=== PATIENT | female | born 1990 | race Caucasian/White ===

== ENCOUNTER 2020-01-27 12:20 | Inpatient (IN) | payer MEDICAID ==
[~2020-01-27] VITALS: Ht 162.6 cm; Wt 39.2 kg
--- NOTE | 2020-01-27 12:30 | NUR ---
Dr. Akins at bedside for MSE
--- NOTE | 2020-01-27 12:44 | NUR ---
Called [facility] supervisor looping for midline placement as ordered by , eta 1400.
[2020-01-27] MEDS ORDERED: IV NORMAL SALINE 1000 ML BAG IV ONE ×2 (12:45→16:15)
[2020-01-27] MEDS ORDERED: HYDROMORPHONE 2 MG/1 ML DISP.SYRIN ONE ×2 (14:55→16:11)
[2020-01-27] MEDS ORDERED: ONDANSETRON 4 MG/2 ML VIAL ONE ×2 (14:55→16:11)
[2020-01-27] MEDS ORDERED: HYDROMORPHONE 1 MG/1 ML DISP.SYRIN IM ONE (15:00)
[2020-01-27] MEDS ORDERED: ONDANSETRON 4 MG/2 ML VIAL IM ONE (15:00)
[2020-01-27 15:48] LABS: BASOPHILS % (AUTO) 0.1 % (0.0-2.0); EOSINOPHILS % (AUTO) 0.1 % (0.0-7.0); LYMPHOCYTES # (AUTO) 1.5 K/uL (20.0-40.0); LYMPHOCYTES % (AUTO) 5.2 % (20.5-51.5); MEAN CORPUSCULAR HEMOGLOBIN 21.7 uug (24.7-32.8); MEAN CORPUSCULAR HGB CONC 32 g/dL (32.3-35.6); MEAN CORPUSCULAR VOLUME 68.1 fL (75.5-95.3); MONOCYTES # (AUTO) 0.2 K/uL (2.0-10.0); MONOCYTES % (AUTO) 0.8 % (0.0-11.0); NEUTROPHILS # (AUTO) 26.7 K/uL (1.8-8.9); NEUTROPHILS % (AUTO) 93.8 % (38.5-71.5); PLATELET COUNT (AUTO) 366 K/uL (179-408); WHITE BLOOD COUNT (AUTO) 28.5 K/uL (3.8-11.8)
[2020-01-27 15:54] LABS: RED BLOOD CELL COUNT(AUTO) 2.45 MIL/uL (3.63-4.92)
[2020-01-27 15:56] LABS: HEMATOCRIT 16.7 % (31.2-41.9); HEMOGLOBIN 5.3 g/dL (10.9-14.3)
[2020-01-27] MEDS ORDERED: HYDROMORPHONE 1 MG/1 ML DISP.SYRIN IV ONE (16:00)
[2020-01-27] MEDS ORDERED: ONDANSETRON 4 MG/2 ML VIAL IV ONE (16:00)
[2020-01-27] MEDS ORDERED: VANCOMYCIN IV 1,000 MG in IV DEXTROSE 5% 250 ML IV ONE (16:00)
[2020-01-27 16:03] LABS: BILIRUBIN,DIRECT 0.9 mg/dL (0.0-0.2); BILIRUBIN,TOTAL 1.3 mg/dL (0.2-1.0); CREATININE 0.6 mg/dL (0.6-1.3); TOTAL PROTEIN, SERUM 6.4 g/dL (6.4-8.2)
[2020-01-27 16:10] LABS: POTASSIUM 2.8 mmol/L (3.5-5.1)
[2020-01-27] MEDS ORDERED: VANCOMYCIN IV 200 ML ONE (16:11)
[2020-01-27] MEDS ORDERED: POTASSIUM CHLORIDE 20 MEQ TAB.PRT.SR PO ONE (16:15)
[2020-01-27] MEDS ORDERED: POTASSIUM CHLORIDE 20 MEQ TAB.PRT.SR ONE (16:19)
[2020-01-27 17:27] LABS: *BILIRUBIN,URIN NEGATIVE (NEGATIVE); *CLARITY,URINE SLIGHTLY CLOUDY (CLEAR); *COLOR,URINE YELLOW (YELLOW); *KETONES,URINE NEGATIVE (NEGATIVE); *UROBILINOGEN,URINE 0.2 E.U./dl (NORMAL); LEUKOCYTE ESTERASE ,URINE TRACE (NEGATIVE); NITRITE, URINE POSITIVE (NEGATIVE); UGLUCOSE NEGATIVE (NEGATIVE)
--- NOTE | 2020-01-27 17:30 | NUR ---
Pt. admitted to Telemetry , under care of Dr. Moya Belongs List completed
[2020-01-27 17:32] LABS: *BLOOD, URINE TRACE LYSED (NEGATIVE)
[2020-01-27 17:39] LABS: *URINE HCG, QUAL NEGATIVE (NEGATIVE); BACTERIA,URINE MANY /HPF (NONE SEEN); SQUAMOUS EPITHELIAL CELL,UR FEW /HPF (NONE SEEN)
[2020-01-27 17:44] LABS: *AMPHETAMINE, URINE POSITIVE (NEGATIVE); *BARBITURATE, URINE NEGATIVE (NEGATIVE); *CANNABINOID, URINE NEGATIVE (NEGATIVE); *COCCAINE, URINE NEGATIVE (NEGATIVE); *OPIATE, URINE POSITIVE (NEGATIVE); *PHENCYCLIDINE SCREEN,URINE NEGATIVE (NEGATIVE)
--- NOTE | 2020-01-27 17:45 | NUR ---
15 MINUTE BLOOD TRANSFUSION VITALS FOLLOWS: BP: 103/51 P106 T98.4 RR20. Denies any pain or discomfor at this time. NAD noted.
[2020-01-27 17:52] LABS: IRON, SERUM 12 ug/dL (50-175)
--- NOTE | 2020-01-27 17:53 | NUR ---
Report given to Autumn PETTY
--- NOTE | 2020-01-27 17:53 | NUR ---
Blood transfusion to finish infusing in telemetry. Autumn PETTY aware
[2020-01-27 18:30] LABS: BAND % (MANUAL) 15 % (0-10); LYMPHOCYTES % (MANUAL) 2 % (20-40); MONOCYTES % (MANUAL) 1 % (2-10); NEUTROPHILS % (MANUAL) 82 % (42-75)
--- NOTE | 2020-01-27 18:30 | NUR ---
received pt. resting in bed alert oriented but goes through periods of dozing off. pt. appears in discomfort screaming c/o being cold. Provided pt. with warm blankets. Pt. has L UE midline intact patent running blood. Pt. on room air saturating 92%. Provided pt. with 2L NC for support. pt. does want body examined at this time for photos. Will endorse to PM nurse. Pt. has bilateral lower extremity edema. Elevated legs on 2 pillows. safety measures in place. call light within reach. will endorse to pm nurse
[2020-01-27] MEDS ORDERED: MAGNESIUM HYDROXIDE 30 ML LIQUID UDC PO PRN (18:45)
[2020-01-27] MEDS ORDERED: ACETAMINOPHEN 325 MG TABLET PO PRN (18:45)
[2020-01-27] MEDS ORDERED: ONDANSETRON 4 MG/2 ML VIAL IV PRN (18:45)
[2020-01-27] MEDS ORDERED: TEMAZEPAM 15 MG CAPSULE PO PRN (18:45)
--- NOTE | 2020-01-27 19:30 | NUR ---
Received patient resting in bed. AAOx3. In and out of dozing off but can easily be awakened. No signs or symptoms of acute distress at this time. Patient denies SOB and pain. Left upper arm midline intact. Blood transfusion remaining. Bed locked and low. Safety measures in place and will continue to monitor.
[2020-01-27 20:13] VITALS: BP 108/59
[2020-01-27] MEDS: POTASSIUM CHLORIDE 20 MEQ in IV D5/ 0.9% NACL 1,000 ML IV PRN (21:09)
[2020-01-27] MEDS: MEROPENEM 1 G in IV NORMAL SALINE 100 ML IV SCH (21:12)
[2020-01-27 21:29] VITALS: BP 111/74
[2020-01-28] VITALS (10 sets, daily range): BP systolic 100–129; BP diastolic 60–72
[2020-01-28] MEDS ORDERED: VANCOMYCIN IV 1,000 MG in IV DEXTROSE 5% 250 ML IV SCH ×2
[2020-01-28 01:38] LABS: HEMATOCRIT 19.4 % (31.2-41.9); HEMOGLOBIN 6.3 g/dL (10.9-14.3)
--- NOTE | 2020-01-28 02:55 | NUR ---
15 MINUTE BLOOD TRANSFUSION VITALS FOLLOWS: BP: 123/68 P 95 T 98.9 RR 16. Denies any pain or discomfort at this time.
[2020-01-28] MEDS ORDERED: VANCOMYCIN IV 750 MG in IV DEXTROSE 5% 250 ML IV SCH (04:00)
--- NOTE | 2020-01-28 04:39 | NUR ---
END Blood Transfusion. Ending vitals BP 107/62 T 98.3 HR 85 RR 16 O2 98%. No acute distress noted. Patient denies pain and SOB
[2020-01-28] MEDS: PANTOPRAZOLE SODIUM 40 MG TABLET.DR PO SCH (06:18)
[2020-01-28 07:09] LABS: BASOPHILS % (AUTO) 0.1 % (0.0-2.0); EOSINOPHILS % (AUTO) 0.1 % (0.0-7.0); HEMATOCRIT 24.4 % (31.2-41.9); HEMOGLOBIN 8.1 g/dL (10.9-14.3); LYMPHOCYTES # (AUTO) 1.4 K/uL (20.0-40.0); LYMPHOCYTES % (AUTO) 5.3 % (20.5-51.5); MEAN CORPUSCULAR HEMOGLOBIN 25.5 uug (24.7-32.8); MEAN CORPUSCULAR HGB CONC 33 g/dL (32.3-35.6); MEAN CORPUSCULAR VOLUME 77.4 fL (75.5-95.3); MONOCYTES # (AUTO) 0.4 K/uL (2.0-10.0); MONOCYTES % (AUTO) 1.5 % (0.0-11.0); NEUTROPHILS # (AUTO) 25.3 K/uL (1.8-8.9); PLATELET COUNT (AUTO) 267 K/uL (179-408); RED BLOOD CELL COUNT(AUTO) 3.16 MIL/uL (3.63-4.92); WHITE BLOOD COUNT (AUTO) 27.2 K/uL (3.8-11.8)
[2020-01-28 07:26] LABS: ALANINE AMINOTRANSFERASE 14 U/L (14-59); ALKALINE PHOSPHATASE 344 U/L (50-136); ASPARTATE AMINOTRANSFERASE 39 U/L (15-37); BILIRUBIN,TOTAL 1.7 mg/dL (0.2-1.0); CARBON DIOXIDE 32 mmol/L (21-32); CHLORIDE 92 mmol/L (98-107); CREATININE 0.6 mg/dL (0.6-1.3); GLUCOSE 149 mg/dL (74-106); MAGNESIUM 1.6 mg/dL (1.8-2.4); PHOSPHOROUS 2.5 mg/dL (2.5-4.9); TOTAL PROTEIN, SERUM 5.5 g/dL (6.4-8.2); TRIGLYCERIDES 43 MG/DL (30-150); UREA NITROGEN, BLOOD 11 mg/dL (7-18)
--- NOTE | 2020-01-28 07:46 | NUR ---
received pt. resting in bed alert oriented x3. pt. denies pain/ discomfort at this time. pt. denies sob/ difficulty breathing. pt. on room air saturating well. Midline in L UE intact patent running prescribed fluid. safety measures in place. call light within reach. will continue to monitor pt.
[2020-01-28 08:07] LABS: CHOLESTEROL < 50 mg/dL (<200)
[2020-01-28] MEDS: MEROPENEM 1 G in IV NORMAL SALINE 100 ML IV SCH ×3 (08:08→23:04)
[2020-01-28 08:16] LABS: HDL CHOLESTEROL < 10 mg/dL (40-60); POTASSIUM 2.8 mmol/L (3.5-5.1)
--- NOTE | 2020-01-28 08:46 | NUR ---
critical lab value for albumin. albumin level 1.1. contacted Dr. quigley. Awaiting orders.
[2020-01-28 09:35] LABS: THYROID STIMULATING HORMONE 1.816 mIU/mL (0.358-3.740)
[2020-01-28] MEDS: MAGNESIUM SULFATE/D5W 100 ML IV SCH ×2 (11:26→12:32)
[2020-01-28] MEDS: POTASSIUM CHLORIDE 10 MEQ TAB.PRT.SR PO SCH ×2 (11:27→16:22)
[2020-01-28] MEDS ORDERED: MEROPENEM 1 G in IV NORMAL SALINE 100 ML IV SCH (16:00)
[2020-01-28] MEDS: MORPHINE SULFATE 2 MG/1 ML DISP.SYRIN IV PRN ×3 (16:23→23:09)
[2020-01-28] MEDS: VANCOMYCIN IV 1,000 MG in IV DEXTROSE 5% 250 ML IV SCH (18:01)
--- NOTE | 2020-01-28 19:30 | NUR ---
Received patient lying in bed. No signs or symptoms of acute distress noted at this time. AAOx3. Patient denies SOB. C/o pain and withdrawal. Will administer medication per order. Midline patent and intact running ordered fluids. Bed locked and in low position. Safety measures in place and will continue to monitor.
[2020-01-29 00:41] VITALS: BP 92/58
[2020-01-29 01:45] LABS: BASOPHILS % (AUTO) 0.1 % (0.0-2.0); EOSINOPHILS % (AUTO) 0.1 % (0.0-7.0); HEMATOCRIT 23.3 % (31.2-41.9); HEMOGLOBIN 7.7 g/dL (10.9-14.3); LYMPHOCYTES # (AUTO) 1.8 K/uL (20.0-40.0); LYMPHOCYTES % (AUTO) 8.2 % (20.5-51.5); MEAN CORPUSCULAR HEMOGLOBIN 25.7 uug (24.7-32.8); MEAN CORPUSCULAR HGB CONC 33 g/dL (32.3-35.6); MEAN CORPUSCULAR VOLUME 77.5 fL (75.5-95.3); MONOCYTES # (AUTO) 0.5 K/uL (2.0-10.0); MONOCYTES % (AUTO) 2.1 % (0.0-11.0); NEUTROPHILS # (AUTO) 19.5 K/uL (1.8-8.9); NEUTROPHILS % (AUTO) 89.5 % (38.5-71.5); PLATELET COUNT (AUTO) 253 K/uL (179-408); RED BLOOD CELL COUNT(AUTO) 3.01 MIL/uL (3.63-4.92); WHITE BLOOD COUNT (AUTO) 21.8 K/uL (3.8-11.8)
[2020-01-29 04:00] VITALS: BP 106/69
[2020-01-29] MEDS: VANCOMYCIN IV 1,000 MG in IV DEXTROSE 5% 250 ML IV SCH ×2 (05:00→16:15)
[2020-01-29] MEDS: PANTOPRAZOLE SODIUM 40 MG TABLET.DR PO SCH (06:01)
[2020-01-29 06:46] LABS: ALANINE AMINOTRANSFERASE 15 U/L (14-59); ALKALINE PHOSPHATASE 294 U/L (50-136); ASPARTATE AMINOTRANSFERASE 25 U/L (15-37); BILIRUBIN,TOTAL 0.8 mg/dL (0.2-1.0); CARBON DIOXIDE 25 mmol/L (21-32); CHLORIDE 94 mmol/L (98-107); CREATININE 0.4 mg/dL (0.6-1.3); GLUCOSE 104 mg/dL (74-106); MAGNESIUM 1.5 mg/dL (1.8-2.4); PHOSPHOROUS 1.6 mg/dL (2.5-4.9); POTASSIUM 4.3 mmol/L (3.5-5.1); UREA NITROGEN, BLOOD 7 mg/dL (7-18)
--- NOTE | 2020-01-29 07:30 | NUR ---
Received pt. in bed sleeping, when aroused, AAOX4. vitals stable no c/of pain at this time. Will continue with care plan.
[2020-01-29] MEDS: MEROPENEM 1 G in IV NORMAL SALINE 100 ML IV SCH ×3 (07:37→21:31)
--- NOTE | 2020-01-29 07:51 | NUR ---
Notified by lab of critical value for Albumin 0.9. Spoke to Dr. Dickinson and they ordered to add 30 mL of protein supplement PO TID with food. Endorsed to oncoming nurse.
[2020-01-29] MEDS: PROTEIN SUPPLEMENT (PROSTAT) 30 ML LIQUID PO SCH ×3 (08:00→16:29)
[2020-01-29 08:15] VITALS: BP 104/64
--- NOTE | 2020-01-29 09:40 | NUR ---
A call from pt's dad and as per patient desire "I don't want any of information or clinical condition to be discussed with my parents my dad specially He's annoying"
[2020-01-29] MEDS ORDERED: NEUTRA PHOS PACKET PO ONE (09:45)
[2020-01-29] MEDS: MAGNESIUM SULFATE/D5W 100 ML IV SCH ×2 (10:27→11:48)
--- NOTE | 2020-01-29 10:30 | NUR ---
a call from pt's mother at this time she was provided with attending exchange number and she was informed of Ms. Kilpatrick desire to have her condition or care plan to be disclosed with any one except her boyfriend and as stated by pt. I'll inform him if needed" Attending also informed. And as suggested by community educatordirector career worker consulted to see patient.
[2020-01-29] MEDS: POTASSIUM CHLORIDE 20 MEQ in IV D5/ 0.9% NACL 1,000 ML IV PRN (10:34)
[2020-01-29] MEDS: MORPHINE SULFATE 2 MG/1 ML DISP.SYRIN IV PRN ×3 (10:35→21:32)
--- NOTE | 2020-01-29 11:25 | NUR ---
WOUND CARE CONSULT: PT REFUSED SKIN ASSESSMENT. REVIEWED PHOTOS AND NURSING DOCUMENTATION WHICH SHOW OPEN AREAS TO HANDS, SACRUM, HIPS, RT LOWER LEG, ALL PRESENT ON ADMISSION. RECOMMEND SURGICAL AND DPM CONSULTS. DR CARDOSO AND DR QUINONES NOTIFIED OF CONSULT REQUESTS. PT IS EXTREMELY THIN AND BONY. MD IN AGREEMENT WITH PLAN OF CARE.
[2020-01-29] MEDS ORDERED: Z GUARD REMEDY PASTE 57 GM TUBE TOP PRN (11:30)
--- NOTE | 2020-01-29 14:04 | NUR ---
Nutritional Services Cook Consultation: 1:00pm: This SW met with the patient for an SS consultation. Patient is a 29 year old female, who was brought in to the ED by her boyfriend due to swollen legs, and a loss of 30 pounds over the last month. Patient was asleep when this SW entered the patient's hospital room, however woke up when this SW called her name. Patient was receptive to meeting with this SW. Assessment completed by gathering information from the patient, who is alert, oriented x 4. Patient reports that she lives with her mother in [place] (address on the face sheet is accurate). Patient stated that she has been in contact with her mother since getting hospitalized, but expressed her wishes of not wanting her medical care and medical information to be discussed with her mother. MALINDA Alva and MALINDA Ospina informed. Patient reports being independent with her ADL's, however does not work. Patient states that she receives GR as income. Patient reports daily use of heroin, stating that she started using heroin at the age of 18. Patient reported being in treatment programs in the past, however stated that they were not helpful. SW explored patient's wishes to try treatment programs again, and patient stated that she does not want to go back to treatment and declined any resources that SW offered, stating "I have a lot of resources, but I'm not going to use them". Patient reported sometimes having feelings of anxiety, but she does not take any medications for anxiety. Patient denied SI and HI. No visual or auditory hallucinations. Patient was inconsistent with maintaining eye contact with this SW during interview, however speech, thought content, and thought process were clear and appropriate. Patient was cooperative with this SW and answered all questions appropriately. At times, patient's affect was observed to be grimacing, however patient said "she was fine". Patient's appearance was disheveled. Discharge plans were discussed, and patient stated that her plans were to return home after this hospitalization. Patient verified contact information: home number [phone]. Patient also stated that another contact is her boyfriend Ezequiel [phone], stating "I am with him 21/12". No further SS interventions needed at this time, however SW will continue to be available for the patient, if needed.
[2020-01-29 16:00] VITALS: BP 120/60
--- NOTE | 2020-01-29 17:00 | NUR ---
left pt. in bed resting medicated for pain prn. during shift pt. refused to get wound treatment both with me and [facility]. allowing only mepilex to sacral area to be changed but limiting the time of care. Pt. tolerating diet but consuming only minimal amount of food. Repositioning in bed independently. ML to LUE patent.
--- NOTE | 2020-01-29 19:30 | NUR ---
RECEIVED PT AWAKE,ALERT AND ORIENTEDX3. PT IN NO ACUTE RESPIRATORY DISTRESS. IV INTACT. PT REFUSING FOR GABRIELLA DOMINGO TO CHECK HER SKIN. PT SAFETY AND COMFORT PROVIDED. WILL CONTINUE TO MONITOR.
[2020-01-29 20:00] VITALS: BP 96/63
[2020-01-30] MEDS: VANCOMYCIN IV 1,000 MG in IV DEXTROSE 5% 250 ML IV SCH ×2 (04:10→17:37)
[2020-01-30] MEDS: MORPHINE SULFATE 2 MG/1 ML DISP.SYRIN IV PRN ×2 (04:11→12:47)
[2020-01-30] MEDS: POTASSIUM CHLORIDE 20 MEQ in IV D5/ 0.9% NACL 1,000 ML IV PRN (04:35)
[2020-01-30 04:49] LABS: ALANINE AMINOTRANSFERASE 15 U/L (14-59); ALKALINE PHOSPHATASE 230 U/L (50-136); ASPARTATE AMINOTRANSFERASE 28 U/L (15-37); BILIRUBIN,TOTAL 0.5 mg/dL (0.2-1.0); CARBON DIOXIDE 26 mmol/L (21-32); CHLORIDE 93 mmol/L (98-107); CREATININE 0.4 mg/dL (0.6-1.3); GLUCOSE 83 mg/dL (74-106); MAGNESIUM 1.3 mg/dL (1.8-2.4); PHOSPHOROUS 2.2 mg/dL (2.5-4.9); TOTAL PROTEIN, SERUM 5.2 g/dL (6.4-8.2); UREA NITROGEN, BLOOD 6 mg/dL (7-18)
[2020-01-30 04:53] LABS: BASOPHILS % (AUTO) 0.1 % (0.0-2.0); EOSINOPHILS % (AUTO) 0.1 % (0.0-7.0); HEMATOCRIT 24.3 % (31.2-41.9); LYMPHOCYTES # (AUTO) 1.8 K/uL (20.0-40.0); LYMPHOCYTES % (AUTO) 11.6 % (20.5-51.5); MEAN CORPUSCULAR HGB CONC 33 g/dL (32.3-35.6); MEAN CORPUSCULAR VOLUME 78.6 fL (75.5-95.3); MONOCYTES # (AUTO) 0.5 K/uL (2.0-10.0); NEUTROPHILS # (AUTO) 13.2 K/uL (1.8-8.9); NEUTROPHILS % (AUTO) 85.2 % (38.5-71.5); PLATELET COUNT (AUTO) 139 K/uL (179-408); RED BLOOD CELL COUNT(AUTO) 3.09 MIL/uL (3.63-4.92); WHITE BLOOD COUNT (AUTO) 15.6 K/uL (3.8-11.8)
[2020-01-30 04:55] VITALS: BP 102/59
--- NOTE | 2020-01-30 05:13 | NUR ---
NOTIFY DR. YANG REGARDING PT CRITICAL LAB OF SODIUM 123 AND ALBUMIN 0.9. NO NEW ORDERS PER PT IN NO ACUTE DISTRESS. WILL CONTINUE TO MONITOR.
[2020-01-30] MEDS: MEROPENEM 1 G in IV NORMAL SALINE 100 ML IV SCH ×3 (05:40→21:34)
[2020-01-30] MEDS: PANTOPRAZOLE SODIUM 40 MG TABLET.DR PO SCH (06:02)
--- NOTE | 2020-01-30 06:07 | NUR ---
PT SLEPT INTERMITTENTLY. PT GIVEN MORPHINE PRN [id number] AND [id number] FOR 10/10 PAIN SCALE. PT TOLERATED IT WELL AND FELT RELIEF AFTER THE PAIN MEDICATION BUT STILL HAS PAIN. PRESCRIBED MEDICATION GIVEN AND PT TOLERATED IT WELL. IV INTACT. SAFETY AND COMFORT PROVIDED.PT TURNED AND REPOSITIONED Q2H. WOUND DRESSING CHANGED. ALL NEEDS ARE MET. WILL ENDORSE TO INCOMING NURSE FOR CONTINUITY OF CARE.
[2020-01-30 08:00] VITALS: BP 120/82
--- NOTE | 2020-01-30 09:30 | NUR ---
Sleeping, appears comfortable. IVF infusing
[2020-01-30] MEDS: PROTEIN SUPPLEMENT (PROSTAT) 30 ML LIQUID PO SCH ×3 (09:32→17:37)
[2020-01-30] MEDS: MAGNESIUM SULFATE/D5W 100 ML IV SCH ×4 (12:46→18:28)
--- NOTE | 2020-01-30 13:00 | NUR ---
Tamiko Vergara seen and examined right hand but refused debridement. Wound CS done, sent to lab.
[2020-01-30] MEDS ORDERED: POTASSIUM PHOSPHATE MM 15 MMOL in IV NORMAL SALINE 250 ML IV ONE (14:15)
[2020-01-30] MEDS ORDERED: POTASSIUM PHOSPHATE MM 7.5 MMOL in IV NORMAL SALINE 97.5 ML IV SCH (15:00)
--- NOTE | 2020-01-30 15:00 | NUR ---
Ismael seen patient, examined right leg wound but refused further treatment.
[2020-01-30 16:00] VITALS: BP 113/81
[2020-01-30] MEDS ORDERED: SODIUM PHOSPHATE MM 15 MMOL in IV NORMAL SALINE 250 ML IV ONE (16:00)
[2020-01-30] MEDS: SODIUM HYPOCHLORITE 0.125% (QUARTER STRENGTH) 473 ML BOTTLE TP SCH (17:37)
--- NOTE | 2020-01-30 18:57 | NUR ---
Wound care treatment attempted again but patient still refused. Magnesium IV infused. Vancomycin infusion ongoing. Na Phos still to be infused. Endorsed for further care.
--- NOTE | 2020-01-30 19:45 | NUR ---
Sleeping comfortably during initial rounds. Multiple IV infusing on TARYN Mid line without s/s of infiltration. No s/s of pain/discomforts. Safety measure and fall prevention observed. Continue care as planned.
[2020-01-30 20:21] VITALS: BP 115/74
[2020-01-31] MEDS: POTASSIUM CHLORIDE 20 MEQ in IV D5/ 0.9% NACL 1,000 ML IV PRN ×2 (00:49→21:51)
[2020-01-31 04:03] VITALS: BP 110/75
[2020-01-31] MEDS: VANCOMYCIN IV 1,000 MG in IV DEXTROSE 5% 250 ML IV SCH (04:11)
--- NOTE | 2020-01-31 05:27 | NUR ---
Shift End Report: Slept good. Patient tends to scream for help instead of using the call light. Several times been instructed the use of call light and placed within easy reach but to no avail. Complaint/screamed for pain every time turned and repositioned for comfort but refused any pain medications offered. All needs attended and met. No significant event reported all night. Refused to have wound pictures taken Charge Nurse aware. Continue current rehab plan of care. VS stable.
[2020-01-31] MEDS: MEROPENEM 1 G in IV NORMAL SALINE 100 ML IV SCH ×2 (05:40→14:37)
[2020-01-31] MEDS: PANTOPRAZOLE SODIUM 40 MG TABLET.DR PO SCH (05:54)
--- NOTE | 2020-01-31 06:12 | NUR ---
Patient refused lab draw and wound picture again. Will endorse to oncoming nurse.
--- NOTE | 2020-01-31 08:30 | NUR ---
Pt finally agreed to have blood drawn. technical producer in room and MD notified of the delay d/t patient refused labs earlier in the AM
[2020-01-31 08:47] LABS: CARBON DIOXIDE 26 mmol/L (21-32); CHLORIDE 94 mmol/L (98-107); CREATININE 0.4 mg/dL (0.6-1.3); GLUCOSE 77 mg/dL (74-106); MAGNESIUM 1.6 mg/dL (1.8-2.4); PHOSPHOROUS 2.1 mg/dL (2.5-4.9); POTASSIUM 3.5 mmol/L (3.5-5.1); UREA NITROGEN, BLOOD 4 mg/dL (7-18)
[2020-01-31 08:48] LABS: BASOPHILS % (AUTO) 0.1 % (0.0-2.0); HEMATOCRIT 27.7 % (31.2-41.9); LYMPHOCYTES # (AUTO) 2.4 K/uL (20.0-40.0); LYMPHOCYTES % (AUTO) 13.7 % (20.5-51.5); MEAN CORPUSCULAR HEMOGLOBIN 25.7 uug (24.7-32.8); MEAN CORPUSCULAR HGB CONC 33 g/dL (32.3-35.6); MONOCYTES # (AUTO) 0.9 K/uL (2.0-10.0); MONOCYTES % (AUTO) 5.3 % (0.0-11.0); NEUTROPHILS # (AUTO) 14.2 K/uL (1.8-8.9); NEUTROPHILS % (AUTO) 80.9 % (38.5-71.5); PLATELET COUNT (AUTO) 285 K/uL (179-408); RED BLOOD CELL COUNT(AUTO) 3.51 MIL/uL (3.63-4.92); WHITE BLOOD COUNT (AUTO) 17.5 K/uL (3.8-11.8)
[2020-01-31] MEDS: PROTEIN SUPPLEMENT (PROSTAT) 30 ML LIQUID PO SCH ×3 (09:07→17:35)
[2020-01-31] MEDS: MORPHINE SULFATE 2 MG/1 ML DISP.SYRIN IV PRN ×3 (09:17→18:18)
[2020-01-31 09:18] LABS: URIC ACID 0.8 mg/dL (2.6-6.0)
[2020-01-31] MEDS: SODIUM HYPOCHLORITE 0.125% (QUARTER STRENGTH) 473 ML BOTTLE TP SCH (09:18)
--- NOTE | 2020-01-31 09:30 | NUR ---
Pt refused to have wounds cleaned, educated on risks and benefits but still refused. Stated maybe later
[2020-01-31] MEDS: MAGNESIUM SULFATE/D5W 100 ML IV SCH ×2 (10:25→11:53)
[2020-01-31 11:19] VITALS: BP 110/68
--- NOTE | 2020-01-31 12:20 | NUR ---
Dr. Lanier came for psych consult and talked to patient.
[2020-01-31 16:18] VITALS: BP 122/79
--- NOTE | 2020-01-31 17:03 | NUR ---
Pt refusing wounds to be cleaned and packed. Dr. Sy came in to see pt and refused to have her wounds packed, covered wounds on right leg with gauze and kerlix. Wounds were oozing clear drainage but no pain. Pt also wanted her sacrum protected but not cleaned, covered with gauze and Mepilex.
[2020-01-31] MEDS ORDERED: NEUTRA PHOS PACKET PO ONE (18:00)
[2020-01-31] MEDS: VANCOMYCIN IV 1,250 MG in IV DEXTROSE 5% 250 ML IV SCH (18:16)
--- NOTE | 2020-01-31 19:35 | NUR ---
Patient alert oriented, no sob no chest pain. Patient refused to her multiple wounds, so that we can do wound treatment, denies pain at this time. Patient assisted with toileting on bed side commode, call light within reach. cont to monitor.
[2020-01-31] MEDS: FLUCONAZOLE 100 MG TABLET PO SCH (19:51)
[2020-01-31 20:09] VITALS: BP 115/75
--- NOTE | 2020-02-01 | NUR ---
Patient awake, asked patient if we can do wound treatment, but refused, said "I want to sleep", cont to offer.
--- NOTE | 2020-02-01 04:00 | NUR ---
Patient alert oriented, no complain of pain, again offered if we can do her wound treatment, continue to refused, cont to monitor.
[2020-02-01 04:18] VITALS: BP 114/71
[2020-02-01 05:41] LABS: BASOPHILS % (AUTO) 0.3 % (0.0-2.0); EOSINOPHILS % (AUTO) 0.1 % (0.0-7.0); HEMATOCRIT 22.6 % (31.2-41.9); HEMOGLOBIN 7.5 g/dL (10.9-14.3); LYMPHOCYTES # (AUTO) 1.8 K/uL (20.0-40.0); LYMPHOCYTES % (AUTO) 13.1 % (20.5-51.5); MEAN CORPUSCULAR HEMOGLOBIN 26.5 uug (24.7-32.8); MEAN CORPUSCULAR HGB CONC 33 g/dL (32.3-35.6); MONOCYTES # (AUTO) 0.7 K/uL (2.0-10.0); MONOCYTES % (AUTO) 4.9 % (0.0-11.0); NEUTROPHILS # (AUTO) 11.4 K/uL (1.8-8.9); NEUTROPHILS % (AUTO) 81.6 % (38.5-71.5); PLATELET COUNT (AUTO) 253 K/uL (179-408); RED BLOOD CELL COUNT(AUTO) 2.83 MIL/uL (3.63-4.92); WHITE BLOOD COUNT (AUTO) 13.9 K/uL (3.8-11.8)
[2020-02-01] MEDS: VANCOMYCIN IV 1,250 MG in IV DEXTROSE 5% 250 ML IV SCH ×2 (05:43→17:02)
[2020-02-01] MEDS: PANTOPRAZOLE SODIUM 40 MG TABLET.DR PO SCH (06:12)
[2020-02-01 06:14] LABS: CARBON DIOXIDE 25 mmol/L (21-32); CHLORIDE 97 mmol/L (98-107); CREATININE 0.3 mg/dL (0.6-1.3); GLUCOSE 96 mg/dL (74-106); MAGNESIUM 1.4 mg/dL (1.8-2.4); PHOSPHOROUS 1.8 mg/dL (2.5-4.9); POTASSIUM 3.9 mmol/L (3.5-5.1); UREA NITROGEN, BLOOD 5 mg/dL (7-18)
[2020-02-01] MEDS: FLUCONAZOLE 100 MG TABLET PO SCH (07:58)
[2020-02-01] MEDS: PROTEIN SUPPLEMENT (PROSTAT) 30 ML LIQUID PO SCH ×3 (07:58→16:19)
[2020-02-01] MEDS: SODIUM HYPOCHLORITE 0.125% (QUARTER STRENGTH) 473 ML BOTTLE TP SCH (07:58)
[2020-02-01] MEDS ORDERED: NEUTRA PHOS PACKET PO ONE (09:30)
[2020-02-01] MEDS: MAGNESIUM SULFATE/D5W 100 ML IV SCH ×4 (09:50→12:17)
[2020-02-01 11:33] VITALS: BP 123/77
[2020-02-01] MEDS: MORPHINE SULFATE 2 MG/1 ML DISP.SYRIN IV PRN ×2 (12:18→17:31)
[2020-02-01 15:22] VITALS: BP 112/70
[2020-02-01] MEDS: POTASSIUM CHLORIDE 20 MEQ in IV D5/ 0.9% NACL 1,000 ML IV PRN (17:52)
--- NOTE | 2020-02-01 19:30 | NUR ---
Received pt in bed, awake. Pt denies any acute distress or pain at this time. Pt assisted to bedside commode. V/S stable on room air. Afebrile. MELIZA midline is intact and patent with 20meqs of KCL with D5NS running at 80cc. Pt is noted to have multiple wounds all over her body. Screams and said she's very uncomfortable every time she moves or being repositioned. Offered some pain medication for relief but pt refused. Safety measures in place. Call light within reach. Will continue with the plan of care.
[2020-02-01 20:09] VITALS: BP 134/75
[2020-02-02] MEDS: MORPHINE SULFATE 2 MG/1 ML DISP.SYRIN IV PRN (05:18)
[2020-02-02] MEDS: VANCOMYCIN IV 1,250 MG in IV DEXTROSE 5% 250 ML IV SCH (05:18)
[2020-02-02] MEDS: PANTOPRAZOLE SODIUM 40 MG TABLET.DR PO SCH (06:02)
--- NOTE | 2020-02-02 06:29 | NUR ---
Vancocin was not given. Trough level has not been identified yet d/t blood drawn that clotted. Will endorse to the oncoming nurse.
--- NOTE | 2020-02-02 06:44 | NUR ---
Pt slept intermittently through the night. Pt awake and denies any acute distress or pain at this time. V/S stable on room air. Afebrile. Pain managed effectively. Kept dry and clean. Comfort care and needs attended. Fall precaution maintained. Safety measures in place. Call light within reach. Will endorse to the oncoming nurse accordingly.
[2020-02-02] MEDS: POTASSIUM CHLORIDE 20 MEQ in IV D5/ 0.9% NACL 1,000 ML IV PRN (06:50)
[2020-02-02] MEDS: PROTEIN SUPPLEMENT (PROSTAT) 30 ML LIQUID PO SCH ×2 (07:27→11:39)
--- NOTE | 2020-02-02 07:28 | NUR ---
received pt. resting in bed alert oriented x3. pt. denies pain/ discomfort at this time. pt. denies sob/ difficulty breathing. Midline in L UE intact patent running prescribed fluid. safety measures in place. call light within reach. will continue to monitor pt.
[2020-02-02] MEDS ORDERED: VANCOMYCIN IV 750 MG in IV DEXTROSE 5% 250 ML IV SCH (08:00)
--- NOTE | 2020-02-02 08:11 | NUR ---
pt refused the abdominal ultra sound made aware
[2020-02-02] MEDS: FLUCONAZOLE 100 MG TABLET PO SCH (08:12)
[2020-02-02] MEDS: SODIUM HYPOCHLORITE 0.125% (QUARTER STRENGTH) 473 ML BOTTLE TP SCH (08:16)
[2020-02-02] MEDS ORDERED: FOLIC ACID 1 MG TABLET PO SCH (09:00)
[2020-02-02 09:19] LABS: FERRITIN 387 ng/mL (8-252)
[2020-02-02 11:34] VITALS: BP 118/76
[2020-02-02 11:37] LABS: BASOPHILS % (AUTO) 0.2 % (0.0-2.0); EOSINOPHILS % (AUTO) 0.1 % (0.0-7.0); HEMATOCRIT 25.9 % (31.2-41.9); HEMOGLOBIN 8.4 g/dL (10.9-14.3); LYMPHOCYTES # (AUTO) 2.2 K/uL (20.0-40.0); MEAN CORPUSCULAR HEMOGLOBIN 26.3 uug (24.7-32.8); MEAN CORPUSCULAR HGB CONC 33 g/dL (32.3-35.6); MEAN CORPUSCULAR VOLUME 80.9 fL (75.5-95.3); MONOCYTES # (AUTO) 0.8 K/uL (2.0-10.0); MONOCYTES % (AUTO) 4.1 % (0.0-11.0); NEUTROPHILS # (AUTO) 16.8 K/uL (1.8-8.9); NEUTROPHILS % (AUTO) 84.6 % (38.5-71.5); PLATELET COUNT (AUTO) 333 K/uL (179-408); RED BLOOD CELL COUNT(AUTO) 3.21 MIL/uL (3.63-4.92); WHITE BLOOD COUNT (AUTO) 19.8 K/uL (3.8-11.8)
--- NOTE | 2020-02-02 11:40 | NUR ---
pt mother called she was very rude to the staff charge nurse talk to her nursing clinical director made aware
[2020-02-02 11:45] LABS: CARBON DIOXIDE 29 mmol/L (21-32); CHLORIDE 97 mmol/L (98-107); CREATININE 0.5 mg/dL (0.6-1.3); GLUCOSE 91 mg/dL (74-106); MAGNESIUM 1.6 mg/dL (1.8-2.4); PHOSPHOROUS 2.5 mg/dL (2.5-4.9); POTASSIUM 4.7 mmol/L (3.5-5.1); UREA NITROGEN, BLOOD 5 mg/dL (7-18)
[2020-02-02 14:50] VITALS: BP 120/87
--- NOTE | 2020-02-02 15:05 | NUR ---
pt decide to go with her boyfriend fe .all the contraindications and side effect explain to the pt ,pt said she have to go her grandma is sick .midline removed and pt left the facility with proper clothing with the boyfrienmd eagle and chargenurse and nursing finishing and shipping supervisor made aware
[2020-02-03 06:06] LABS: HEPATITIS B SURFACE AB Non Reactive (.); HEPATITIS B SURFACE AG Negative (Negative)
== END 2020-02-02 15:05 | disposition left against medical advice (07) | DRG 720 ==
LOC: ER 12:28 → TELE3 18:04 → MEDSURG3 01-29 11:05
PROVIDERS: ADMIT Internal Medicine; ATTEND Registered Nurse
PROC: 05H633Z Insertion of Infusion Device into Left Subclavian Vein, Percutaneous Approach (ICD-10-PCS; principal; 2020-01-27)
PROC: B547ZZA Ultrasonography of Left Subclavian Vein, Guidance (ICD-10-PCS; principal; 2020-01-27)
PROC: 30233N1 Transfusion of Nonautologous Red Blood Cells into Peripheral Vein, Percutaneous Approach (ICD-10-PCS; principal; 2020-01-27)
DX: A41.9 Sepsis, unspecified organism (principal); L02.511 Cutaneous abscess of right hand; E87.1 Hypo-osmolality and hyponatremia; E87.6 Hypokalemia; E43 Unspecified severe protein-calorie malnutrition; D63.8 Anemia in other chronic diseases classified elsewhere; M65.141 Other infective (teno)synovitis, right hand; Z74.09 Other reduced mobility; D68.59 Other primary thrombophilia; R62.7 Adult failure to thrive; M21.331 Wrist drop, right wrist; L03.116 Cellulitis of left lower limb; L03.115 Cellulitis of right lower limb; Z88.0 Allergy status to penicillin; Z91.19 Patient's noncompliance with other medical treatment and regimen; F17.200 Nicotine dependence, unspecified, uncomplicated; D68.9 Coagulation defect, unspecified; E86.1 Hypovolemia; Z68.1 Body mass index [BMI] 19.9 or less, adult; R19.5 Other fecal abnormalities; M79.661 Pain in right lower leg; L89.153 Pressure ulcer of sacral region, stage 3; L03.011 Cellulitis of right finger; M65.88 Other synovitis and tenosynovitis, other site; S71.101A Unspecified open wound, right thigh, initial encounter; S71.001A Unspecified open wound, right hip, initial encounter; X58.XXXA Exposure to other specified factors, initial encounter; Y93.9 Activity, unspecified; Y92.009 Unspecified place in unspecified non-institutional (private) residence as the place of occurrence of the external cause; M79.641 Pain in right hand; L02.818 Cutaneous abscess of other sites; F32.9 Major depressive disorder, single episode, unspecified; R53.1 Weakness; S61.401A Unspecified open wound of right hand, initial encounter; B37.49 Other urogenital candidiasis; F11.20 Opioid dependence, uncomplicated; F15.188 Other stimulant abuse with other stimulant-induced disorder; Z71.51 Drug abuse counseling and surveillance of drug abuser; B95.61 Methicillin susceptible Staphylococcus aureus infection as the cause of diseases classified elsewhere; L02.31 Cutaneous abscess of buttock; S71.002A Unspecified open wound, left hip, initial encounter
CPT/HCPCS: 36415; 70030-TC; 71045; 80307; 82533; 83550; 83605; 83690; 83735; 84100; 84300; 84443; 84550; 84703; 85018; 85025; 85610; 85730; 86706; 86803; 86850; 86900; 86901; 86920; 87040; 87070; 87077; 87086; 87340; 87806; 93005; 93307; A4663; G0378; J1170; J2185; J2270; J2405; J3370; J3475; J3480; J3490; J7030; J7040; J7042; J7050; J7060; P9016-BL; P9021